=== PATIENT | female | born 1950 | race Caucasian/White ===

== ENCOUNTER → 2018-05-26 | Outpatient (CLI) | payer MEDICARE, OTHER ==
[2014-10-22 12:48] VITALS: BMI 32.0
[~2018-05-26] MED LIST: 0.92DISP2 IJ; ACET650T40 PO; AMOX500T10 PO; CITA-145 PO; Citalopram Hydrobromide PO; DICL100G39 TOP; DICL25TA9 PO; DULO30CA35 PO; DULO30CA6 PO; DULO60CA56 PO; DULO60CA7 PO; ENOX60DI8 SQ; FLU45SYR17 IM; GABA-503 PO; GABA-549 PO; Gabapentin PO; HYDR-318 PO; HYDR-385 PO; HYDR-389 PO; LOR5/325 PO; LORA-1456 PO; Levofloxacin PO; Lorazepam PO; METR-1 IV; METR-160 PO; Metronidazole PO; ONDA4TAB97 PO; OSE75 PO; OXYC-865 PO; PNEI IJ; PRE5 PO; PROM-110 PO; PROM12.514 IVP; SERT-184 PO; SODI500I12 IV; SULF500T48 PO; TRAM-420 PO; TRIA15CR40 TP; WARF-1 PO; WARF5TAB23 PO; Warfarin Sod PO; [UNRECOGNIZED DRUG - CODE] IV; [UNRECOGNIZED DRUG - CODE] PO; [UNRECOGNIZED DRUG - CODE] PO; narcan IVP
--- NOTE | 2018-05-26 16:17 | RADIOLOGY IMAGING REPORT ---
FACILITY: [facility] PATIENT NAME: Heidi Mars : 1950 MR: [id number] V: [id number] EXAM DATE: ORDERING PHYSICIAN: MORGAN LIZARRAGA TECHNOLOGIST: Location: [facility] [place] Patient: Heidi Mars : 1950 Visit/Account:[id number] Date of Sevice: 05/26/2018 BONE MINERAL DENSITY HISTORY: screening COMPARISON: 02/26/1997 FINDINGS: LUMBAR SPINE: Bone mineral density (BMD) measured from L1-L4 correlates with a Z-score of 1.3 and a T-score of 0.2 which is normal as defined by the World Health Organization. The corresponding risk of fracture in t he lumbar spine is not increased compared with a young adult reference population. This value has de creased by 10.5-percent since the prior study. More than 5-percent change is considered significant. FOREARM: Bone mineral density (BMD) measured in the ULTRADISTAL left forearm, where trabecular bone predominat es, correlates with a Z-score of -0.8 and a T-score of -2.3 which is osteopenia as defined by the Wor ld Health Organization. The corresponding risk of fracture in the distal forearm is increased 4-5 ti mes compared with a young adult reference population. Bone mineral density (BMD) in the MIDSHAFT left forearm, where cortical bone predominates, correlate s with a Z-score of -0.1 and a T-score of -1.6 which is osteopenia as defined by the World Health Org anization. The corresponding risk of fracture in the midshaft forearm is increased 3 times compared w ith a young adult reference population. IMPRESSION: 1. Lumbar spine: Normal bone mineral density. There has been significant interval decrease in the bone mineral density since the previous exam. 2. Left Forearm: Osteopenia. No prior exam of the forearm for comparison. The next DEXA scan of this patient should include the following sites: L1-L4 and left forearm. FRAX? WHO Fracture Risk Assessment Tool link: <http://www.shef.ac.uk/FRAX/tool.jsp?locationValue=9> PLEASE NOTE: 1) The World Health Organization defines low BMD as follows: T-score Normal > -1 Osteopenia < -1 and > -2.5 Osteoporosis < -2.5 without fractures Established osteoporosis < -2.5 with fractures 2) In general, you may wish to consider: Diagnosis Treatment Follow-up DEXA Normal BMD Prevention 2-3 years Osteopenia Prevention/therapy 1-2 years Osteoporosis Therapy Yearly 3) Fracture risk estimated from the T-score is more accurate for vertebral fractures (often spontane ous) than for hip fractures. Report Dictated By: Remigio Pope MD at 05/26/2018 4:10 PM Report E-Signed By: Remigio Pope MD at 05/26/2018 4:13 PM WSN:[id number]
[2018-05-26 16:27] LABS: LDL CHOLESTEROL 125 mg/dl
--- NOTE | 2018-05-29 17:25 | RADIOLOGY IMAGING REPORT ---
FACILITY: [facility] [place] PATIENT NAME: FLORENCIA SUMNER : [id number] MR: [id number] V: [id number] EXAM DATE: ORDERING PHYSICIAN: MORGAN LIZARRAGA TECHNOLOGIST: Violet Jimenez PROCEDURE:BILATERAL DIGITAL SCREENING MAMMOGRAM WITH CAD ASSISTED INTERPRETATION & 3D TOMOSYNTHESIS COMPARISON:None. INDICATIONS:screening FINDINGS: A small amount of fibroglandular tissue is seen throughout the breasts. The parenchymal pattern has remained stable allowing for difference in mammographic technique & patient positioning. There is no evidence of malignant appearing mass, malignant appearing calcifications or other secondary sign of malignancy in either breast. DIAGNOSTIC CATEGORY 1--NEGATIVE. RECOMMENDATIONS: ROUTINE MAMMOGRAM AND CLINICAL EVALUATION. IMPRESSION: BIRADS 1: Negative. No significant abnormality is seen. Dictated by: Moon Kamara M.D. on 05/29/2018 at 15:38 Transcribed by: JIMENA on 05/29/2018 at 15:49 Approved by: Moon Kamara M.D. on 05/29/2018 at 17:24 [facility]
== END ==
LOC: MAMO 02:57
PROVIDERS: ATTEND Internal Medicine
DX: Z12.31 Encounter for screening mammogram for malignant neoplasm of breast (principal); Z78.0 Asymptomatic menopausal state; E04.9 Nontoxic goiter, unspecified; E78.00 Pure hypercholesterolemia, unspecified; M06.9 Rheumatoid arthritis, unspecified; M85.88 Other specified disorders of bone density and structure, other site
CPT/HCPCS: 36415; 77063; 77067; 77080; 82040; 82247; 82310; 82374; 82435; 82465; 82565; 82947; 83718; 84075; 84132; 84155; 84295; 84443; 84450; 84460; 84478; 84520

== ENCOUNTER 2018-12-27 01:44 | Day surgery (SDC) | payer MEDICARE, OTHER ==
[2014-10-22 12:48] VITALS: Ht 157.5 cm; Wt 81.2 kg
[~2018-12-27] VITALS: Ht 157.5 cm; Wt 81.2 kg
[~2018-12-27 01:44] MED LIST changes: +ACET-2146 PO; +DOCU-416 PO; +FLU60VIA41 IM; -GABA-503 PO; +GABA-533 PO; -METR-160 PO; +METR500T15 PO
[2018-12-27] MEDS ORDERED: LIDOCAINE MPF 1% 5 ML VIAL ONE (07:09)
[2018-12-27] MEDS ORDERED: PROPOFOL EMUL(*) 10MG/ML 20 ML 60 ML ONE (07:09)
[2018-12-27 10:40] VITALS: BP 113/68
[2018-12-27] MEDS ORDERED: NORMOSOL R SOLN(*) 1000 ML BAG 1,000 ML IV PRN (10:45)
[2018-12-27] MEDS ORDERED: LIDOCAINE/SOD BICARB 8.4% SYR ID ONE (10:45)
[2018-12-27 11:26] VITALS: BP 101/40
--- NOTE | 2018-12-27 11:39 | Short(Outpt) Discharge Summary ---
Discharge Summary Reason for Hosp/Final Diag: (1) Colon cancer screening Status: Chronic Hospital Course & Plan: Colonoscopy with polypectomy x2 completed without problems. Departure Discharge to: Home, Self Care Discharge Instructions Home Meds Active Scripts Duloxetine HCl (Duloxetine HCl) 60 Mg Capsule.dr, 1 TAB PO DAILY, #90 TAB 0 Refills Prov:KENDRA FUENTES APRNP-C 10/27/18 Lorazepam (ATIVAN) 1 Mg Tablet, 1 TAB PO BID PRN for ANXIETY, #60 TAB 1 Refill Prov:KENDRA FUENTES APRNP-C 10/27/18 Gabapentin (GABAPENTIN) 300 Mg Capsule, 2 CAP PO BID, #120 CAPSULE 5 Refills Prov:MORGAN LIZARRAGA MD 10/20/17 Diclofenac Sodium 1% Gel (VOLTAREN 1% GEL) 100 Gm Gel..gram., 2 GM TOP QID, #1 TUBE 3 Refills Prov:MORGAN LIZARRAGA MD 01/19/17 Reported Medications Warfarin Sodium (WARFARIN SODIUM) 5 Mg Tablet, 5 MG PO QDAY, TAB TUESDAY, TUESDAY, TUESDAY, TUESDAY, Tuesday12/13/18 Acetaminophen 500 Mg Tab (ACETAMINOPHEN EXTRA STRENGTH) 500 Mg Tablet, 2 TAB PO Q4-6H PRN for PAIN, TAB 12/13/18 Docusate Sodium (COLACE) 100 Mg Capsule, 100 MG PO DAILY, CAPSULE 12/13/18 Warfarin Sodium (WARFARIN SODIUM) 5 Mg Tablet, 7.5 MG PO 2XW, TAB MONDAYS AND Fridays12/13/18 Promethazine Hcl (PROMETHAZINE HCL) 25 Mg Tablet, 1 TAB PO Q8H PRN for nausea, #30 TAB 05/25/18 Diet: Regular Activity: As Tolerated Special Instructions: Your colonoscopy was completed without problems and your prep was excellent (Good Job!!). I removed 2 polyps from your colon and they were sent to pathology. I also found diverticuli in your sigmoid colon which are benign outpouchings that 40% of people develop over time. They are benign (not cancerous or precancerous). When we find these, we recommend that you include lots of fruits and vegetables in your diet and you can also consider taking a daily fiber supplement such as metamucil or citrucel. My office will call you in the next week or two to let you know what the polyps are and when your next colonoscopy should be (either 5 or 10 years) depending on the pathology results. You may restart your coumadin today. Call my office and ask for a procedure appointment when you are ready to have the skin lesion removed from your right lower abdomen. SAADIA MALONE MD Dec 27, 2018 11:39
[2018-12-27 11:45] VITALS: BP 77/58
[2018-12-27 11:59] VITALS: BP 87/77
[2018-12-27 12:03] VITALS: BP 99/63
--- NOTE | 2018-12-27 14:10 | NUR ---
1400 pt son to fern picker patient at the patient entrance. Son yelling, using foul language about not knowing where to fern picker his mother. when reached entrance, there was no sign of her son. pt called son, son stated that he left and that she was on her own. attempted to call son with no response. called daughter, daughter Dee to fern picker her mother.
== END 2018-12-27 14:30 | disposition home or self-care (01) ==
LOC: OR 01:44
PROVIDERS: ATTEND Surgery
DX: Z12.11 Encounter for screening for malignant neoplasm of colon (principal); K63.5 Polyp of colon; K57.30 Diverticulosis of large intestine without perforation or abscess without bleeding
CPT/HCPCS: 00811; 45385; 88305; J2001; J2704

== ENCOUNTER → 2019-01-29 | Outpatient (CLI) | payer MEDICARE, OTHER ==
[2014-10-22 12:48] VITALS: BMI 32.0
[~2019-01-29] MED LIST changes: +BUS5 PO; +OXYGENHOME INH; +UMEC1DIS ASDIRECTED; +UMEC1DIS INH
== END ==
LOC: RESP 09:50
PROVIDERS: ATTEND Internal Medicine
DX: J98.4 Other disorders of lung (principal)
CPT/HCPCS: 94060; 94726; 94729

== ENCOUNTER → 2019-02-01 | Outpatient (CLI) | payer MEDICARE, OTHER ==
[2014-10-22 12:48] VITALS: BMI 32.0
[2019-02-01 13:24] LABS: PLATELET COUNT, AUTOMATED 225 K/uL (150-450)
[2019-02-01 14:03] LABS: LDL CHOLESTEROL 119 mg/dl
== END ==
LOC: LAB 13:03
PROVIDERS: ATTEND Emergency Medicine
DX: M85.80 Other specified disorders of bone density and structure, unspecified site (principal); J96.11 Chronic respiratory failure with hypoxia; E78.00 Pure hypercholesterolemia, unspecified; M06.9 Rheumatoid arthritis, unspecified
CPT/HCPCS: 82040; 82247; 82306; 82310; 82374; 82435; 82465; 82565; 82947; 83718; 84075; 84132; 84155; 84295; 84443; 84450; 84460; 84478; 84520; 85025

== ENCOUNTER → 2019-02-01 | Outpatient (CLI) | payer MEDICARE, OTHER ==
[2014-10-22 12:48] VITALS: BMI 32.0
[2019-02-01 13:35] LABS: INR 2.46
== END ==
LOC: LAB 13:00
PROVIDERS: ATTEND Pharmacist Pharmacotherapy
DX: Z51.81 Encounter for therapeutic drug level monitoring (principal); I26.99 Other pulmonary embolism without acute cor pulmonale; Z79.01 Long term (current) use of anticoagulants
CPT/HCPCS: 36415; 85610

== ENCOUNTER → 2019-02-21 | Outpatient (CLI) | payer MEDICARE, OTHER ==
[2014-10-22 12:48] VITALS: BMI 32.0
[~2019-02-21] MED LIST changes: +CHOL200074 PO; +FLUT1DIS28 IH
== END ==
LOC: RESP 21:34
PROVIDERS: ATTEND Emergency Medicine
DX: G47.30 Sleep apnea, unspecified (principal); G47.36 Sleep related hypoventilation in conditions classified elsewhere; G47.61 Periodic limb movement disorder

== ENCOUNTER → 2019-03-07 | Outpatient (CLI) | payer MEDICARE, OTHER ==
[2014-10-22 12:48] VITALS: BMI 32.0
== END ==
LOC: LAB 13:26
PROVIDERS: ATTEND Emergency Medicine
DX: G25.81 Restless legs syndrome (principal); E55.9 Vitamin D deficiency, unspecified
CPT/HCPCS: 36415; 82306; 82607

== ENCOUNTER → 2019-03-20 | Outpatient (CLI) | payer MEDICARE, OTHER ==
[2014-10-22 12:48] VITALS: BMI 32.0
== END ==
LOC: US 03-16 02:26
PROVIDERS: ATTEND Emergency Medicine
DX: I27.20 Pulmonary hypertension, unspecified (principal); I51.7 Cardiomegaly
CPT/HCPCS: 93306

== ENCOUNTER → 2019-04-26 | Outpatient (CLI) | payer MEDICARE, OTHER ==
[2014-10-22 12:48] VITALS: BMI 32.0
== END ==
LOC: LAB 11:33
PROVIDERS: ATTEND Internal Medicine
DX: G35 Multiple sclerosis (principal)
CPT/HCPCS: 36415

== ENCOUNTER 2019-05-17 09:00 | Outpatient (RCR) | payer MEDICARE, OTHER ==
[2014-10-22 12:48] VITALS: BMI 32.0
== END 2019-06-04 ==
LOC: CARD 09:00
PROVIDERS: ATTEND Emergency Medicine
DX: J96.11 Chronic respiratory failure with hypoxia (principal)
CPT/HCPCS: G0424 ×10

== ENCOUNTER 2019-06-07 15:00 | Outpatient (RCR) | payer MEDICARE, OTHER ==
[2014-10-22 12:48] VITALS: BMI 32.0
== END 2019-06-07 18:00 | disposition home or self-care (01) ==
LOC: CARD 15:00
PROVIDERS: ATTEND Emergency Medicine
DX: J96.11 Chronic respiratory failure with hypoxia (principal)
CPT/HCPCS: G0424

== ENCOUNTER → 2019-06-13 | Outpatient (CLI) | payer MEDICARE, OTHER ==
[2014-10-22 12:48] VITALS: BMI 32.0
== END ==
LOC: LAB 15:22
PROVIDERS: ATTEND Emergency Medicine
DX: I82.409 Acute embolism and thrombosis of unspecified deep veins of unspecified lower extremity (principal); E55.9 Vitamin D deficiency, unspecified; Z86.711 Personal history of pulmonary embolism
CPT/HCPCS: 36415; 82306